=== PATIENT | male | born 2000 | race Hispanic/Latino ===

== ENCOUNTER 2019-10-02 21:17 | Emergency (ER) | payer BC, SELFPAY ==
[2019-10-02] MEDS ORDERED: Acetaminophen 500 MG TAB ONE (21:42)
[2019-10-02] MEDS ORDERED: Ibuprofen 200 MG TAB ONE (21:56)
== END 2019-10-02 22:04 | disposition home or self-care (01) ==
LOC: NAV ERS 21:17
DX: J02.0 Streptococcal pharyngitis (principal)
CPT/HCPCS: 87081; 87430; 87804; 99283